=== PATIENT | female | born 1935 | race Caucasian/White ===

== ENCOUNTER → 2017-10-13 | Outpatient (CLI) | payer MEDICARE ==
[~2017-10-13] MED LIST: ASPIRIN EC81 M1 PO; CENTRUM COMPLE1 EACH PO; CITRACAL + D E1 EACH PO; ESTRACE2 MG PO; FIORINAL CAPSUL1 CA1 PO; FIORINAL/CODEIN30 M1 PO; FOLIC ACID 40400 MC1 PO; HAIR, SKIN & N1 EAC1 PO; KONSYL1 EACH PO; OMEGA 3-6-9 CO1 EACH PO; PREVACID15 MG PO; TRAMADOL 50 MG50 MG PO; TRICOR145 MG PO; VITAMIN D31000 UNI2 PO
== END ==
LOC: M.RAD 11:00
DX: Z12.31 Encounter for screening mammogram for malignant neoplasm of breast (principal)

== ENCOUNTER → 2018-10-21 | Outpatient (CLI) | payer MEDICARE | LOC: M.RAD 09:30 | DX: Z12.31 Encounter for screening mammogram for malignant neoplasm of breast (principal) ==

== ENCOUNTER → 2019-11-19 | Outpatient (CLI) | payer MEDICARE | LOC: M.RAD 13:59 | PROVIDERS: ATTEND Obstetrics & Gynecology | DX: Z12.31 Encounter for screening mammogram for malignant neoplasm of breast (principal) ==

== ENCOUNTER → 2020-03-27 | Outpatient (CLI) | payer MEDICARE | LOC: M.MRI 12:56 | PROVIDERS: ATTEND Internal Medicine | DX: I67.89 Other cerebrovascular disease (principal); G31.9 Degenerative disease of nervous system, unspecified; G89.29 Other chronic pain ==

== ENCOUNTER → 2020-09-06 | Outpatient (CLI) | payer MEDICARE | LOC: M.RAD 14:13 | PROVIDERS: ATTEND Obstetrics & Gynecology | DX: M85.88 Other specified disorders of bone density and structure, other site (principal); M81.0 Age-related osteoporosis without current pathological fracture ==

== ENCOUNTER → 2020-11-09 | Outpatient (CLI) | payer MEDICARE | LOC: M.RAD 16:13 | PROVIDERS: ATTEND Internal Medicine | DX: M43.16 Spondylolisthesis, lumbar region (principal); M48.061 Spinal stenosis, lumbar region without neurogenic claudication ==

== ENCOUNTER → 2020-11-30 | Outpatient (CLI) | payer MEDICARE | LOC: M.RAD 08:00 | PROVIDERS: ATTEND Obstetrics & Gynecology | DX: Z12.31 Encounter for screening mammogram for malignant neoplasm of breast (principal) ==